=== PATIENT | male | born 1975 | race Caucasian/White ===

== ENCOUNTER 2018-07-18 12:20 | Emergency (ER) | payer MEDICAID ==
[2018-07-18 12:39] VITALS: BP 163/101
[2018-07-18] MEDS ORDERED: SODIUM CHLORIDE 0.9% 1,000 ML IV ONE ×2 (13:38→16:38)
[2018-07-18 13:55] LABS: BILIRUBIN,URINE NEGATIVE (NEGATIVE); GLUCOSE, URINE (UA) >=1000 mg/dL (NEGATIVE); KETONES,URINE (UA) NEGATIVE (NEGATIVE); LEUKOCYTE ESTERASE, URINE NEGATIVE (NEGATIVE); NITRITE,URINE NEGATIVE (NEGATIVE); OCCULT BLOOD,URINE MODERATE (NEGATIVE); PH,URINE 6.5 PH (5.0-7.5); PROTEIN,URINE >=300 mg/dL (NEGATIVE); UROBILINOGEN,URINE 0.2 (NORMAL) E.U./dL (NORMAL)
[2018-07-18 13:56] LABS: CLARITY,URINE CLEAR (CLEAR)
[2018-07-18 14:05] LABS: BACTERIA,URINE Rare /HPF (None Seen); CASTS, URINE 3-5 Hyaline Casts /LPF; MUCUS,URINE Moderate Strands; SQUAMOUS EPITHELIAL CELL,UR RARE Squamous (<= Few); WBC CLUMPS,URINE PRESENT
[2018-07-18 14:05] LABS: BASOPHILS # (AUTO) 0.1 10^3/uL (0.0-0.1); BASOPHILS % (AUTO) 1.3 %; EOSINOPHILS # (AUTO) 0.1 10^3/uL (0.0-0.7); EOSINOPHILS % (AUTO) 1.6 %; HGB - HEMOGLOBIN 12.4 g/dL (14.0-18.0); LYMPHOCYTES # (AUTO) 1.6 10^3/uL (1.5-3.5); LYMPHOCYTES % (AUTO) 19.3 %; MEAN CORPUSCULAR HEMOGLOBIN 28.7 pg (27.0-31.0); MEAN CORPUSCULAR HGB CONC 34.2 g/dL (32.0-36.0); MEAN PLATELET VOLUME 8.8 fL (7.4-11.4); MONOCYTES # (AUTO) 0.5 10^3/uL (0.0-1.0); MONOCYTES % (AUTO) 5.4 %; NEUTROPHILS # (AUTO) 6.1 10^3/uL (1.5-6.6); NEUTROPHILS % (AUTO) 72.4 %; PLT - PLATELET COUNT 282 10^3/uL (130-450); RED BLOOD COUNT 4.33 10^6/uL (4.70-6.10); RED CELL DISTRIBUTION WIDTH 13.4 % (12.0-15.0); WHITE BLOOD COUNT 8.4 x10^3/uL (4.8-10.8)
[2018-07-18 14:17] LABS: ALBUMIN 2.2 g/dL (3.2-5.5); ALBUMIN/GLOBULIN RATIO 0.6 (1.0-2.2); BILIRUBIN,TOTAL 0.6 mg/dL (0.2-1.0); CALCIUM 8.2 mg/dL (8.5-10.3)
[2018-07-18] MEDS ORDERED: SODIUM CHLORIDE 0.9% 1,000 ML IV STA (14:44)
[2018-07-18] MEDS ORDERED: INSULIN REGULAR HUMAN 100 UNIT/1 ML 10 ML MDV SUBQ STA (14:46)
[2018-07-18] MEDS ORDERED: cephALEXin 250 MG CAPSULE PO STA (16:39)
[2018-07-18] MEDS ORDERED: INSULIN REGULAR HUMAN 100 UNIT/1 ML 10 ML MDV IVP STA (16:45)
--- NOTE | 2018-07-18 16:50 | ED Physician Documentation ---
History of Present Illness - Stated complaint Stated Complaint: DARK VISION/HAND SWELLING - Chief complaint Chief Complaint: General - History obtained from History obtained from: Patient - Additonal information Additional information: The patient is a 42-year-old diabetic male who states, "I think I still have an infection in my blood." He was hospitalized 2 weeks ago at [facility] in [place] after an I&D of an abscess in his right groin. A blood culture at that time grew out staph articularis, which was thought to be a skin contaminant. He was treated with clindamycin while in the hospital, and was discharged with a prescription for 5 more days of oral clindamycin. However he did not fill the prescription. He was also discharged with prescription for glimepiride, metformin, and lisinopril. He did not fill those prescriptions either. He presents now complaining of feeling chilled and sleepy. He has headache, nausea without vomiting, and "dim vision." He denies cough or shortness of breath. He is currently homeless, but is staying with a friend on [facility]. He has a past history of methamphetamine abuse, but states he has not taken any drugs for more than 3 months. Review of Systems Constitutional: reports: Chills, Fatigue. denies: Fever Eyes: reports: Decreased vision Ears: denies: Tinnitus/ringing Nose: denies: Congestion Throat: denies: Sore throat Cardiac: denies: Chest pain / pressure Respiratory: denies: Dyspnea, Cough GI: reports: Nausea. denies: Abdominal Pain, Vomiting, Diarrhea : denies: Dysuria Skin: denies: Rash Musculoskeletal: denies: Back pain Neurologic: denies: Focal weakness, Headache PD PAST MEDICAL HISTORY - Past Medical History Past Medical History: No Cardiovascular: Hypertension Respiratory: None Neuro: None Endocrine/Autoimmune: Type 2 diabetes GI: None : Renal insuffiency HEENT: None Psych: Depression Musculoskeletal: None Derm: None - Past Surgical History Past Surgical History: Yes General: Cholecystectomy, Appendectomy Ortho: Amputation - Present Medications Home Medications: Ambulatory Orders Medication Instructions Recorded Confirmed Glimepiride 2 mg PO BID #60 tablet 07/18/18 cephALEXin [Cephalexin] 500 mg PO TID #20 tablet 07/18/18 - Allergies Allergies/Adverse Reactions: Allergies Allergy/AdvReac Type Severity Reaction Status Date / Time ketamine AdvReac Dizziness Verified 07/18/18 13:14 tramadol AdvReac Emesis Verified 07/18/18 13:14 vancomycin AdvReac Unknown Verified 07/18/18 13:14 - Social History Does the pt smoke?: No Smoking Status: Never smoker Does the pt drink ETOH?: No Does the pt have substance abuse?: No - Immunizations Immunizations are current?: Yes - POLST Patient has POLST: No PD ED PE NORMAL - Vitals Vital signs reviewed: Yes (hypertensive) - General General: Alert and oriented X 3, Other (Ill kempt.) - HEENT HEENT: Atraumatic, PERRL, EOMI, Pharynx benign - Neck Neck: Supple, no meningeal sign, No adenopathy, No JVD - Cardiac Cardiac: RRR, No murmur - Respiratory Respiratory: No respiratory distress, Clear bilaterally - Abdomen Abdomen: Soft, Non tender - Back Back: No CVA TTP - Derm Derm: No rash, Other (Healing I&D site at the right groin.) - Extremities Extremities: No edema, No calf tenderness / cord, Other (Fifth metatarsal rays have 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.) - Neuro Neuro: Alert and oriented X 3, No motor deficit, Normal speech Results - Vitals Vitals: Vital Signs - 24 hr 07/18/18 12:36 Temperature 36.5 C Heart Rate 93 Respiratory 18 Rate Blood Pressure 163/101 H O2 Saturation 100 Oxygen O2 Source Room air - Labs Labs: Laboratory Tests 07/18/18 07/18/18 07/18/18 13:44 13:58 13:58 WBC 8.4 RBC 4.33 L Hgb 12.4 L Hct 36.4 L MCV 84.0 MCH 28.7 MCHC 34.2 RDW 13.4 Plt Count 282 MPV 8.8 Neut # (Auto) 6.1 Lymph # (Auto) 1.6 [place] # (Auto) 0.5 Eos # (Auto) 0.1 Baso # (Auto) 0.1 Absolute Nucleated RBC 0.00 Nucleated RBC % 0.0 Sodium 133 L Potassium 4.4 Chloride 101 Carbon Dioxide 28 Anion Gap 4.0 L BUN 14 Creatinine 1.0 Estimated GFR (MDRD) 82 L Glucose 341 H POC Whole Bld Glucose Lactic Acid Calcium 8.2 L Total Bilirubin 0.6 AST 15 ALT 17 Alkaline Phosphatase 104 Total Protein 6.0 L Albumin 2.2 L Globulin 3.8 Albumin/Globulin Ratio 0.6 L Lipase 31 Urine Color YELLOW Urine Clarity CLEAR Urine pH 6.5 Ur Specific [place] 1.025 Urine Protein >=300 Urine Glucose (UA) >=1000 H Urine Ketones NEGATIVE Urine Occult Blood MODERATE H Urine Nitrite NEGATIVE Urine Bilirubin NEGATIVE Urine Urobilinogen 0.2 (NORMAL) Ur Leukocyte Esterase NEGATIVE Urine RBC 11-25 H Urine WBC 6-10 H Urine WBC Clumps PRESENT Ur Squamous Epith Cells RARE Squamous Urine Bacteria Rare Urine Casts 3-5 Hyaline Casts Urine Mucus Moderate Strands Ur Microscopic Review INDICATED Urine Culture Comments INDICATED 07/18/18 07/18/18 13:58 16:11 WBC RBC Hgb Hct MCV MCH MCHC RDW Plt Count MPV Neut # (Auto) Lymph # (Auto) [place] # (Auto) Eos # (Auto) Baso # (Auto) Absolute Nucleated RBC Nucleated RBC % Sodium Potassium Chloride Carbon Dioxide Anion Gap BUN Creatinine Estimated GFR (MDRD) Glucose POC Whole Bld Glucose 322 H Lactic Acid 1.0 Calcium Total Bilirubin AST ALT Alkaline Phosphatase Total Protein Albumin Globulin Albumin/Globulin Ratio Lipase Urine Color Urine Clarity Urine pH Ur Specific [place] Urine Protein Urine Glucose (UA) Urine Ketones Urine Occult Blood Urine Nitrite Urine Bilirubin Urine Urobilinogen Ur Leukocyte Esterase Urine RBC Urine WBC Urine WBC Clumps Ur Squamous Epith Cells Urine Bacteria Urine Casts Urine Mucus Ur Microscopic Review Urine Culture Comments PD MEDICAL DECISION MAKING - ED course Complexity details: reviewed old records, reviewed results, re-evaluated patient, considered differential, d/w patient ED course: The patient's presentation is significant for hyperglycemia with an initial blood sugar of 341, dehydration, and urinary tract infection. There is no clini juan m evidence to suggest diabetic ketoacidosis or sepsis. Treatment in the emergency department included administration of normal saline 3 L IV, regular insulin 10 units subcutaneously and 5 units IV, and cephalexin 500 mg orally. Repeat blood sugar was only slightly improved to 322. The patient's symptoms subjectively improved, and demonstrated greater wakefulness. I discussed with him the diagnosis, the importance of treating his diabetes, outpatient follow-up, as well as potentially worrisome signs or symptoms that should prompt reevaluation in the emergency department. He states that he would not take metformin because it is caused diarrhea for him in the past. Prescriptions were written for glimepiride and for cephalexin. Unfortunately the patient left the emergency department without his discharge papers or his prescriptions. Attempt to locate him in the parking lot or at the bus stop was unsuccessful. Departure - Departure Disposition: 01 Home, Self Care Clinical Impression: Dehydration Hyperglycemia due to type 2 diabetes mellitus Qualifiers: Diabetes mellitus correction insulin use: without iv rn use Qualified Code(s): E11.65 - Type 2 diabetes mellitus with hyperglycemia UTI (urinary tract infection) Qualifiers: Urinary tract infection type: acute cystitis Hematuria presence: with hematuria Qualified Code(s): N30.01 - Acute cystitis with hematuria Instructions: ED Hyperglycemia Diabetic, ED UTI Cystitis Male Follow-Up: [facility] [Provider Group] Prescriptions: cephALEXin [Cephalexin] 500 mg PO TID #20 tablet Glimepiride 2 mg PO BID #60 tablet Comments: Drink plenty of fluids. Take glimepiride twice daily as prescribed. Take cephalexin 3 times daily as prescribed. Follow-up with primary physician within 1 week. Call to schedule appointment. Return to the emergency department if you develop fever with shaking chills, persistent vomiting, recurrent dehydration, or otherwise worsening symptoms
== END 2018-07-18 17:55 | disposition left against medical advice (07) ==
LOC: ED 12:20
DX: E86.0 Dehydration (principal); E11.65 Type 2 diabetes mellitus with hyperglycemia; N30.01 Acute cystitis with hematuria; Z59.0 Homelessness; I10 Essential (primary) hypertension; Z89.422 Acquired absence of other left toe(s); Z89.421 Acquired absence of other right toe(s)
CPT/HCPCS: 36415; 80053; 81001; 83605; 83690; 85025; 87040; 87086; 96360; 96361; 99283; A9270; J1815; 81003

== ENCOUNTER 2018-07-20 10:07 | Emergency (ER) | payer MEDICAID ==
--- NOTE | 2018-07-20 11:18 | ED Physician Documentation ---
PD HPI BACK PAIN - Stated complaint Stated Complaint: MID BACK PX - Chief complaint Chief Complaint: Back Pain - History obtained from History obtained from: Patient - History of Present Illness Timing - onset: Last night Timing - duration: Hours Timing - details: Gradual onset, Still present Location: Mid, Left Quality: Pain, Sharp Associated symptoms: No: Fever, Weakness, Numbness, Incontinent of urine, Unable to urinate, Hematuria, Incontinent of stool Improves with: Rest, Position Worsened by: Movement Similar symptoms before: Diagnosis (kidney infection) Recently seen: Emergency Dept - Additional information Additional information: 42-year-old homeless male has developed pain in his left back. He was seen in the emergency department here 2 days ago and diagnosed with urinary tract infection given a prescription for antibiotic and he did not fill this. He has persistence of this pain and he is having some hard of hearing. He has had a cough productive of sputum. Review of Systems Constitutional: reports: Myalgias, Fatigue. denies: Fever Eyes: denies: Decreased vision Ears: reports: Loss of hearing, Ear pain Nose: reports: Rhinorrhea / runny nose, Congestion Throat: denies: Sore throat Cardiac: denies: Chest pain / pressure, Palpitations Respiratory: reports: Cough. denies: Dyspnea GI: reports: Nausea. denies: Vomiting : denies: Dysuria, Frequency Skin: denies: Rash Musculoskeletal: reports: Back pain. denies: Neck pain, Extremity pain Neurologic: denies: Generalized weakness, Focal weakness, Numbness PD PAST MEDICAL HISTORY - Past Medical History Past Medical History: Yes Cardiovascular: Hypertension Respiratory: None Neuro: None Endocrine/Autoimmune: Type 2 diabetes GI: None : Renal insuffiency HEENT: None Psych: Depression Musculoskeletal: None Derm: None - Past Surgical History Past Surgical History: Yes General: Cholecystectomy, Appendectomy Ortho: Amputation - Present Medications Home Medications: Ambulatory Orders Medication Instructions Recorded Confirmed RX: Glimepiride 2 mg PO BID #60 tablet 07/18/18 RX: cephALEXin [Cephalexin] 500 mg PO TID #20 tablet 07/18/18 Amox/Clav 875/125 [Augmentin] 1 each PO Q12H #20 tablet 07/20/18 - Allergies Allergies/Adverse Reactions: Allergies Allergy/AdvReac Type Severity Reaction Status Date / Time ketamine AdvReac Dizziness Verified 07/18/18 13:14 tramadol AdvReac Emesis Verified 07/18/18 13:14 vancomycin AdvReac Unknown Verified 07/18/18 13:14 - Social History Does the pt smoke?: No Smoking Status: Never smoker Does the pt drink ETOH?: No Does the pt have substance abuse?: No - Immunizations Immunizations are current?: Yes - POLST Patient has POLST: No PD ED PE NORMAL - Vitals Vital signs reviewed: Yes (hypertension) - General General: Alert and oriented X 3, No acute distress, Well developed/nourished - HEENT HEENT: Atraumatic, PERRL, EOMI, Other (The right TM is inflamed with loss of distinction to the landmarks the left is clear. dry mucous membranes) - Neck Neck: Supple, no meningeal sign, No bony TTP - Cardiac Cardiac: RRR, No murmur - Respiratory Respiratory: No respiratory distress, Clear bilaterally - Abdomen Abdomen: Soft, Non tender - Back Back: No spinal TTP, Other (There is left CVA tenderness and tenderness to the paraspinous muscles of the lower lumbar spine. ) - Derm Derm: Normal color, Warm and dry, No rash - Extremities Extremities: No deformity, No edema - Neuro Neuro: Alert and oriented X 3, momd teacher 2-12 intact, No motor deficit, No sensory deficit, Normal speech Eye Opening: Spontaneous Motor: Obeys Commands Verbal: Oriented GCS Score: 15 - Psych Psych: Normal mood, Normal affect Results - Vitals Vitals: Vital Signs - 24 hr 07/20/18 07/20/18 10:14 13:15 Temperature 36.3 C L Heart Rate 94 76 Respiratory 18 18 Rate Blood Pressure 168/99 H 167/103 H O2 Saturation 100 98 Oxygen O2 Source Room air - Labs Labs: Laboratory Tests 07/20/18 07/20/18 07/20/18 10:23 11:20 11:20 POC Whole Bld Glucose 200 H Urine Color YELLOW Urine Clarity CLEAR Urine pH 6.5 Ur Specific [place] 1.025 Urine Protein >=300 Urine Glucose (UA) 500 H Urine Ketones NEGATIVE Urine Occult Blood MODERATE H Urine Nitrite NEGATIVE Urine Bilirubin NEGATIVE Urine Urobilinogen 0.2 (NORMAL) Ur Leukocyte Esterase NEGATIVE Urine RBC 6-10 H Urine WBC 4-5 Ur Squamous Epith Cells RARE Squamous Urine Bacteria Rare Urine Casts 0-2 Hyaline Casts Ur Microscopic Review INDICATED Urine Culture Comments NOT INDICATED Urine Opiates Screen NEGATIVE Ur Oxycodone Screen NEGATIVE Urine Methadone Screen NEGATIVE Ur Propoxyphene Screen NEGATIVE Ur Barbiturates Screen NEGATIVE Ur Tricyclics Screen NEGATIVE Ur Phencyclidine Scrn NEGATIVE Ur Amphetamine Screen NEGATIVE U Methamphetamines Scrn NEGATIVE U Benzodiazepines Scrn NEGATIVE Urine Cocaine Screen NEGATIVE U Cannabinoids Screen NEGATIVE Procedures - Bedside sono Bedside sono by EMP: With use of bedside ultrasound the left kidney is imaged and it is sonographically tender and in comparison to the surrounding musculature is less tender than the paraspinous muscles. There is no evidence of hydronephrosis or perinephric swelling. - IVC sono (time) [id number] Bedside IVC sono: IVC measures (cm) (2), Euvolemia PD MEDICAL DECISION MAKING - ED course Complexity details: reviewed old records, reviewed results, re-evaluated patient, considered differential, d/w patient ED course: 42-year-old male with back pain does not appear to have urinary tract infection on evaluation of his urine today. His urine from 2 days ago has grown out a contaminant. He does have otitis on examination. He is administered Rocephin [address] him on a course of antibiotic. He has been non-compliant with his medications and he is stating that he has given up and when we try to discharge him he indicates that he will drive down to [place] to be admitted to the [facility]. He was hydrated here 2 days ago with 3 liters of saline and today he is euvolemic on interrogation of the IVC. He does not require fluid resuscitation today and his finger stick is 200. I offered for the patient to talk to the healthcare social worker and he elopes after speaking on the phone. He does have scripts for his medications. Departure - Departure Disposition: ED [place] Clinical Impression: Otitis media Qualifiers: Otitis media type: suppurative Chronicity: acute Laterality: right Recurrence: not specified as recurrent Spontaneous tympanic membrane rupture: without spontaneous rupture Qualified Code(s): H66.001 - Acute suppurative otitis media without spontaneous rupture of ear drum, right ear Instructions: ED Otitis Media Acute Adult Follow-Up: [facility] [Provider Group] Prescriptions: Amox/Clav 875/125 [Augmentin] 1 each PO Q12H #20 tablet Discharge Date/Time: 07/20/18 15:34
[2018-07-20 11:50] LABS: BILIRUBIN,URINE NEGATIVE (NEGATIVE); CLARITY,URINE CLEAR (CLEAR); GLUCOSE, URINE (UA) 500 mg/dL (NEGATIVE); KETONES,URINE (UA) NEGATIVE (NEGATIVE); LEUKOCYTE ESTERASE, URINE NEGATIVE (NEGATIVE); NITRITE,URINE NEGATIVE (NEGATIVE); OCCULT BLOOD,URINE MODERATE (NEGATIVE); PH,URINE 6.5 PH (5.0-7.5); PROTEIN,URINE >=300 mg/dL (NEGATIVE); UROBILINOGEN,URINE 0.2 (NORMAL) E.U./dL (NORMAL)
[2018-07-20 12:01] LABS: BACTERIA,URINE Rare /HPF (None Seen); CASTS, URINE 0-2 Hyaline Casts /LPF; SQUAMOUS EPITHELIAL CELL,UR RARE Squamous (<= Few)
[2018-07-20] MEDS ORDERED: LIDOCAINE 1% 2 ML VIAL SUBQ ONE (12:23)
[2018-07-20] MEDS ORDERED: cefTRIAXone 1 GM VIAL IM STA (12:23)
[2018-07-20] MEDS ORDERED: KETOROLAC 60 MG/2 ML VIAL IM STA (13:00)
[2018-07-20 13:16] VITALS: BP 167/103
[2018-07-20 14:28] LABS: MUDS CUTOFF CONCENTRATIONS CUTOFF CONC BELOW:
[2018-07-20 14:50] LABS: AMPHETAMINE SCREEN,URINE NEGATIVE (NEGATIVE); BENZODIAZEPINES SCREEN, URINE NEGATIVE (NEGATIVE); COCAINE SCREEN URINE NEGATIVE (NEGATIVE); METHADONE SCREEN, URINE NEGATIVE (NEGATIVE); METHAMPHETAMINES SCREEN, URINE NEGATIVE (NEGATIVE); OPIATE SCREEN, URINE NEGATIVE (NEGATIVE); OXYCODONE SCREEN, URINE NEGATIVE (NEGATIVE); PROPOXYPHENE SCREEN, URINE NEGATIVE (NEGATIVE); TRICYCLIC ANTIDEPRESSANT,URINE NEGATIVE (NEGATIVE)
== END 2018-07-20 15:34 | disposition left against medical advice (07) ==
LOC: ED 10:07
DX: H66.001 Acute suppurative otitis media without spontaneous rupture of ear drum, right ear (principal); E86.0 Dehydration; I10 Essential (primary) hypertension
CPT/HCPCS: 80306; 81001; 81003; 87086; 96372; 99283